=== PATIENT | female | born 1945 | race Caucasian/White ===

== ENCOUNTER 2020-02-13 12:50 | Outpatient (CLI) | payer MEDICARE, OTHER ==
--- NOTE | 2020-02-13 14:01 | MMO ---
Bilateral MAMMO Bilat Diag [facility]. CLINICAL HISTORY: Patient is 74 years old and is seen for diagnostic exam. The patient has the following family history of breast cancer: 3 cousin females. The patient has no personal history of cancer. The patient has a history of left Cyst Aspiration in November, - benign and right Ultrasound Guided Core Biopsy in 2001 - benign. VIEWS: The views performed were: bilateral craniocaudal with tomosynthesis; bilateral mediolateral oblique with tomosynthesis; and bilateral mediolateral with tomosynthesis. FILMS COMPARED: The present examination has been compared to prior imaging studies performed at [facility] on 12/10/2018 and 02/05/2020, and at [facility] on 02/13/2020. This study has been interpreted with the assistance of computer-aided detection. MAMMOGRAM FINDINGS: The breasts are heterogeneously dense, which could obscure a lesion on mammography. Finding 1: There is a focal asymmetry measuring 9 millimeters with circumscribed margins seen in the right breast at 10 o'clock. lymph node Finding 2: There is a focal asymmetry measuring 10 millimeters with circumscribed margins seen in the left breast at 12 o'clock. Debris filled cyst 1 There are no suspicious masses, suspicious calcifications, or new areas of architectural distortion. IMPRESSION: THERE IS NO MAMMOGRAPHIC EVIDENCE OF MALIGNANCY. A ROUTINE FOLLOW-UP MAMMOGRAM IN 1 YEAR IS RECOMMENDED. THE RESULTS OF THIS EXAM WERE SENT TO THE PATIENT. ACR BI-RADS Category 2 - Benign finding MAMMOGRAPHY NOTE: 1. A negative mammogram report should not delay a biopsy if a dominant of clinically suspicious mass is present. 2. Approximately 10% to 15% of breast cancers are not detected by mammography. 3. Adenosis and dense breasts may obscure an underlying neoplasm. Reported by: BRENDEN ELIZALDE MD Electonically Signed: [id number]
--- NOTE | 2020-02-13 14:40 | ULT ---
RIGHT BREAST ULTRASOUND LIMITED: HISTORY: The patient presents for breast ultrasound to evaluate abnormal mammogram. FINDINGS: The right breast is evaluated at the 10 o'clock position approximately 6 cm from the nipple where the re is a 0.9 cm diameter lymph node. I feel that this probably corresponds to the area of mammographi c concern. IMPRESSION: Benign right breast lymph node. BIRADS category 2, benign findings. Continued annual screening mamm ograms.
--- NOTE | 2020-02-13 15:05 | ULT ---
LEFT BREAST ULTRASOUND: HISTORY: Evaluate abnormal mammogram. FINDINGS: The left breast is evaluated. At the 12:30 o'clock position, there is a thin-walled cyst measuring 0 .6 x 0.9 x 1.1 cm. This contains some minimal debris, but there is good through transmission. There is a much smaller 2nd somewhat adjacent cyst. IMPRESSION: Left breast cyst corresponding to area of mammographic concern. BIRADS category 2 - benign findings. Annual followup screening mammogram is recommended.
== END 2020-02-13 12:51 | disposition home or self-care (01) ==
LOC: BICMAMMO 12:50
PROVIDERS: ATTEND Obstetrics & Gynecology
DX: R92.8 Other abnormal and inconclusive findings on diagnostic imaging of breast (principal); N60.02 Solitary cyst of left breast
CPT/HCPCS: 76642 ×2; 77066; G0279

== ENCOUNTER 2021-02-17 15:07 | Outpatient (CLI) | payer MEDICARE, OTHER | END 2021-02-17 15:08 | disposition home or self-care (01) | LOC: BICMAMMO 15:07 | PROVIDERS: ATTEND Obstetrics & Gynecology | DX: Z12.31 Encounter for screening mammogram for malignant neoplasm of breast (principal); Z80.3 Family history of malignant neoplasm of breast; Z91.89 Other specified personal risk factors, not elsewhere classified | CPT/HCPCS: 77063; 77067 ==

== ENCOUNTER 2021-04-13 10:11 | Emergency (ER) | payer MEDICARE, OTHER ==
[2021-04-13] MEDS ORDERED: Ondansetron PF 4 MG/2 ML Vial ONE (12:31)
[2021-04-13 12:53] LABS: #Lymphocytes 1.3 thou/uL (1.20-3.40); #Monocytes 0.3 thou/uL (0.11-0.59); #Neutrophils 3.6 thou/uL (1.40-6.50); %Basophils 0.1 % (0.0-1.0); %Eosinophils 0.1 % (0.0-10.0); %Lymphocytes 25.4 % (21.0-51.0); %Neutrophils 69.5 % (42.0-75.0); Hemoglobin 14.1 g/dL (12.0-16.0); Mean Corpuscular HGB CONC 35.4 g/dL (32.0-36.0); Mean Corpuscular Hemoglobin 33.2 pg (27.0-31.0); Mean Corpuscular Volume 93.6 fL (78.0-98.0); Mean Platelet Volume 8.3 fL (7.4-10.4); Platelet Count 136 thou/uL (130-400); RBC Distribution Width 11.6 % (11.5-14.5); Red Blood Cell (RBC) Count 4.25 mill/uL (4.20-5.40); White Blood Cell (WBC) Count 5.2 thou/uL (4.8-10.8)
[2021-04-13 13:15] LABS: ALT (SGPT) 60 U/L (8-55); AST (SGOT) 91 U/L (5-34); Albumin 3.9 g/dL (3.4-4.8); Alkaline Phosphatase 60 U/L (40-110); Anion Gap 16 mmol/L (10-20); BUN (Urea Nitrogen) 14 mg/dL (9.8-20.1); Bilirubin, Total 0.5 mg/dL (0.2-1.2); Calc. Creatinine Clearance 0 mL/min (70-130); Calcium 8.7 mg/dL (7.8-10.44); Carbon Dioxide 22 mmol/L (23-31); Chloride 104 mmol/L (98-107); Globulin 3.2 g/dL (2.4-3.5); Glucose 91 mg/dL (83-110); Potassium 3.7 mmol/L (3.5-5.1); Protein, Total 7.1 g/dL (5.8-8.1); Sodium 138 mmol/L (136-145)
[2021-04-13] MEDS ORDERED: Metoclopramide HCl 10 MG/2 ML VIAL ONE (15:16)
[2021-04-13] MEDS ORDERED: Metoclopramide 10 MG/10 ML UDCUP ONE (15:16)
== END 2021-04-13 16:44 | disposition home or self-care (01) ==
LOC: ERS 10:11
DX: R11.2 Nausea with vomiting, unspecified (principal); Z20.822 Contact with and (suspected) exposure to COVID-19; E03.9 Hypothyroidism, unspecified; Z79.899 Other long term (current) drug therapy
CPT/HCPCS: 36415; 80053; 85025; 96374; 96375; J2405; J2765

== ENCOUNTER 2021-05-20 11:42 | Outpatient (CLI) | payer MEDICARE, OTHER | END 2021-05-20 11:43 | disposition home or self-care (01) | LOC: BICRAD 11:42 | PROVIDERS: ATTEND Specialist | DX: U07.1 COVID-19 (principal); J12.82 Pneumonia due to coronavirus disease 2019 | CPT/HCPCS: 71046 ==

== ENCOUNTER 2022-02-18 09:51 | Outpatient (CLI) | payer MEDICARE, OTHER | END 2022-02-18 09:52 | disposition home or self-care (01) | LOC: BICMAMMO 09:51 | PROVIDERS: ATTEND Obstetrics & Gynecology | DX: Z12.31 Encounter for screening mammogram for malignant neoplasm of breast (principal); Z80.3 Family history of malignant neoplasm of breast | CPT/HCPCS: 77063; 77067 ==

== ENCOUNTER 2023-06-20 12:58 | Outpatient (CLI) | payer MEDICARE, OTHER | END 2023-06-20 12:59 | disposition home or self-care (01) | LOC: BICMAMMO 12:58 | PROVIDERS: ATTEND Specialist | DX: Z12.31 Encounter for screening mammogram for malignant neoplasm of breast (principal); Z80.3 Family history of malignant neoplasm of breast; Z91.89 Other specified personal risk factors, not elsewhere classified; Z98.890 Other specified postprocedural states | CPT/HCPCS: 77063; 77067 ==

== ENCOUNTER 2024-09-13 09:04 | Outpatient (CLI) | payer MEDICARE, OTHER | END 2024-09-13 09:05 | disposition home or self-care (01) | LOC: BICMAMMO 09:04 | PROVIDERS: ATTEND Specialist | DX: Z12.31 Encounter for screening mammogram for malignant neoplasm of breast (principal); Z80.3 Family history of malignant neoplasm of breast; Z91.89 Other specified personal risk factors, not elsewhere classified | CPT/HCPCS: 77063; 77067 ==